=== PATIENT | male | born 1955 | race Caucasian/White ===

== ENCOUNTER → 2017-05-06 | Outpatient (CLI) | payer BC, SELFPAY | PROVIDERS: Visit Provider Surgery | DX: D17.1 Benign lipomatous neoplasm of skin and subcutaneous tissue of trunk (principal); Z01.818 Encounter for other preprocedural examination | CPT/HCPCS: 36415; 80048; 85025; 93005 ==

== ENCOUNTER 2017-06-05 08:41 | Day surgery (SDC) | payer BC, SELFPAY ==
[2017-06-02 14:41] VITALS: BMI 32.8
[2017-06-05] VITALS (11 sets, daily range): BP systolic 130–180; BP diastolic 72–95; PULSE 53–62; RESP 16–18; TEMP 36.1–37; O2SAT 95–98
--- NOTE | 2017-06-05 09:37 | HMH.ANESCL ---
[facility] Anesthesia Checklist - Patient Identification Patient Identification: Arm Band - Structural Data Admitted From: Home Planned Operative Procedure/s: excision right lower back mass Consent for Planned Operative Procedure(s) Verified: Yes Verified Documents: Surgical Consent, History and Physical - NPO Status Verified Time NPO: 00:00 - Additional verifications Anesthesia Reactions: No - Airway Assessment C-Spine Mobility Assessed: Yes (mp2) TMJ Mobility Assessed: Yes Dentition: Good Dentition - Neurological Assessment Level of Consciousness: Awake, Alert - Anesthesia Plan Anesthesia Risk discussed: Yes Anesthesia Plan: Verified ASA Class: III Anesthesia Type: General [facility] Anesthesia HX I have reviewed the patient's past medical history: Yes Medical History: Reports:: Diabetes Mellitus Type 2 (ON MEDS), Gastroesophageal Reflux Disease(GERD), Hyperlipidemia, Hypertension Denies:: Cancer, Diabetes Mellitus Type 1, MRSA Comment: flip-no cpap, anxiety Other Surgeries: Yes: Colonoscopy, Hernia Repair Amputation: No Fractures: No Comment: hemorrhoidectomy *Family Hx:: Cancer, Coronary Artery Disease, Heart Attack, Hypertension, Kidney Disease
[2017-06-05 09:40] LABS: POC Glucose,Bedside 155 mg/dL
--- NOTE | 2017-06-05 10:47 | HMH.OPNOTE ---
Date of procedure: 06/05/17 Pre-op Diagnosis:: Right lower back lipoma versus sebaceous cyst Post-op diagnosis:: other (Right lower back sebaceous cyst) Procedure performed:: Excision of 5cm sebaceous cyst from right lower back Surgeon:: Walt Collins MD MARKETING STRATEGY LEAD:: Paul Heredia Anesthesia: LMA Estimated blood loss (mL): 10 Operative findings:: Large complex sebaceous cyst along the right lower back Operative note:: After informed consent was obtained, the patient was taken to the operating room and placed in the supine position. General anesthesia with laryngeal mask airway was achieved the patient was transferred to a left lateral decubitus position. The right lower back was prepped and draped in a sterile fashion. After infiltration of local anesthetic an elliptical incision was made around the central portion of the lesion and the underlying tissue was carefully excised with combination of sharp dissection with scalpel and electrocautery. A large complex cystic lesion was excised and passed off for pathologic evaluation. The wound was thoroughly irrigated and skin was closed with interrupted 4-0 nylon. Dressings were applied. The patient's anesthetic agents were reversed and he was transferred to recovery after removal of his laryngeal mask airway. Condition: stable Disposition: PACU Specimens:: Large complex right lower back sebaceous cyst Complications:: No immediate
--- NOTE | 2017-06-05 10:50 | P.OP_ITS ---
Date of procedure: 06/05/17 Pre-op Diagnosis:: Right lower back lipoma versus sebaceous cyst Post-op diagnosis:: other (Right lower back sebaceous cyst) Procedure performed:: Excision of 5cm sebaceous cyst from right lower back Surgeon:: Walt Collins MD ENTREPRENEURIAL FINANCE PROFESSOR:: Paul Heredia Anesthesia: LMA Estimated blood loss (mL): 10 Operative findings:: Large complex sebaceous cyst along the right lower back Operative note:: After informed consent was obtained, the patient was taken to the operating room and placed in the supine position. General anesthesia with laryngeal mask airway was achieved the patient was transferred to a left lateral decubitus position. The right lower back was prepped and draped in a sterile fashion. After infiltration of local anesthetic an elliptical incision was made around the central portion of the lesion and the underlying tissue was carefully excised with combination of sharp dissection with scalpel and electrocautery. A large complex cystic lesion was excised and passed off for pathologic evaluation. The wound was thoroughly irrigated and skin was closed with interrupted 4-0 nylon. Dressings were applied. The patient's anesthetic agents were reversed and he was transferred to recovery after removal of his laryngeal mask airway. Condition: stable Disposition: PACU Specimens:: Large complex right lower back sebaceous cyst Complications:: No immediate
--- NOTE | 2017-06-05 10:57 | HMH.ANESI ---
[facility] Anesthesia Record Part I Intake, IV Amount: 700 Estimated blood loss (mL): 10 Urine output (mL): 0 Blood Pressure: 133/76 SaO2: 95 Pulse Rate: 59 Respiratory Rate: 16 Temperature: 97.4 F Patient is:: Drowsy, Stable Stable to PACU at:: 10:55
--- NOTE | 2017-06-05 10:59 | HMH.ANESII ---
[facility] Anesthesia Record Part II Discharge Time: 11:25 Destination: [facility] PACU nurse assessment reviewed?: Yes Patient Condition:: Good Anesthesia Complications:: None
--- NOTE | 2017-06-05 11:00 | P.PN_ITS ---
[facility] Anesthesia Record Part II Discharge Time: 11:25 Destination: [facility] PACU nurse assessment reviewed?: Yes Patient Condition:: Good Anesthesia Complications:: None
[2017-06-05 11:17] LABS: POC Glucose,Bedside 137 mg/dL
== END 2017-06-05 12:26 | disposition home or self-care (01) ==
LOC: OR 08:43
PROVIDERS: PCP Family Medicine; Visit Provider Surgery
PROC: (CPT 11406; principal; 2017-06-05 10:45)
DX: L72.3 Sebaceous cyst (principal); R20.8 Other disturbances of skin sensation; E11.8 Type 2 diabetes mellitus with unspecified complications
CPT/HCPCS: 11406; 82962; 96374; J2405

== ENCOUNTER → 2017-11-24 08:05 | Outpatient (CLI) | payer BC, SELFPAY ==
--- NOTE | 2017-11-25 14:41 | PC.NURSE ---
[facility] WAS POSITIVE. 'S OFFICE CONTACTED AND [facility] FAXED
== END ==
PROVIDERS: PCP Family Medicine; Visit Provider Family Medicine
DX: R07.89 Other chest pain (principal)
CPT/HCPCS: 93017

== ENCOUNTER → 2017-12-22 10:26 | Outpatient (CLI) | payer BC, SELFPAY ==
[2017-12-22 11:05] LABS: Anion Gap 12.9 mEq/L (5-15); Blood Urea Nitrogen 23 mg/dL (7-18); Calcium 9.2 mg/dL (8.5-10.1); Carbon Dioxide 31 mmol/L (21.0-32.0); Chloride 102 mmol/L (98-107); Creatinine,Serum 1.49 mg/dL (0.70-1.30); Estimated Glomerular Filt Rate 48 ml/min (>60); GFR (African American) 58 ML/MIN (>60); Glucose 182 mg/dL (74-106); Potassium 4.9 mmoL/L (3.5-5.1); Sodium 141 mmol/L (136-145)
== END ==
PROVIDERS: Visit Provider Internal Medicine
DX: I20.8 Other forms of angina pectoris (principal); I10 Essential (primary) hypertension
CPT/HCPCS: 36415; 80048

== ENCOUNTER → 2017-12-29 08:48 | Outpatient (CLI) | payer BC, SELFPAY ==
--- NOTE | 2017-12-29 08:50 | CA_ITS ---
PROCEDURE: 2-D M-mode and color Doppler study INDICATIONS FOR THE TEST: Chest painX COPDX Heart Murmur Tobacco SmokingEX PalpitationsX FatigueX Syncope Edema HypertensionXDiabetes MellitusX Rheumatic Fever SOBXDOEXObesityXHyperlipidemia Family History HDX Additional History ABN EKG PATIENT INFORMATION HEIGHT: 71 WEIGHT:247 GENDER: Male B/P:155/72 2-D/M-MODE INTERPRETATION: 2-D MEASUREMENTS OBSERVED VALUES IN CMS Right Ventricular Dimension (RVDd) 2.3 Interventricular Septum (Thickness)(IVsd) 1.4 Left Ventricular Internal Dimensions(LVIDd) 5.4 Left Ventricular Posterior Wall (Thickness)(LVPWd) 1.3 Aortic Root 2.9 Aortic Cusp Separation 2.0 Left Atrial Dimensions (LAD) 4.7 2D 1. Left atrium is mildly enlarged, left ventricle is normal size, mild concentric left ventricular hypertrophy, visually estimated ejection fraction 55% with no obvious regional wall motion abnormality. 2. The right atrium and right ventricle are normal size and contractility. 3. The aortic valve is minimally thickened and fibrosed. 4. The mitral and tricuspid valvular minimally thickened. 5. The pulmonic valve is poorly visualized. 6. No significant pericardial effusion noted. DOPPLER INTERROGATION: Doppler interrogation of the aortic, mitral and tricuspid valvular presence of mild mitral and tricuspid regurgitation, tricuspid regurgitant jet velocity is insufficient for calculation of the right ventricular systolic pressure, grade 1 diastolic dysfunction seen with tissue Doppler evidence of raised left atrial pressure. CONCLUSION: 1. Mildly enlarged left atrium, normal left ventricular size, mild concentric left ventricular hypertrophy, visually estimated ejection fraction of 55% with no obvious regional wall motion abnormality, grade 1 diastolic dysfunction seen with tissue Doppler evidence of raised left atrial pressure. 2. Mild mitral and tricuspid regurgitation 3. No significant pericardial effusion noted.
[2017-12-29 10:09] VITALS: PULSE 67
== END ==
PROVIDERS: PCP Family Medicine; Visit Provider Internal Medicine
DX: R06.09 Other forms of dyspnea (principal)
CPT/HCPCS: 93306; 94060; 94640; 94726; 94729

== ENCOUNTER → 2018-07-30 13:45 | Outpatient (CLI) | payer BC, SELFPAY ==
--- NOTE | 2018-07-30 13:50 | XR_ITS ---
XR shoulder LT min 2V HISTORY: ITS.REASON: CHRONIC LT SHOULDER PAIN ORDERING PHYSICIAN: Christian Noonan PATIENT AGE: 62 years Comparison: None FINDINGS: No fracture or dislocation. No lytic or blastic change. There is normal mineralization. The joint spaces are well-preserved. No significant degenerative/arthritic changes. No erosive changes evident. There is mild subacromial stenosis IMPRESSION: Mild subacromial stenosis otherwise negative left shoulder
== END ==
PROVIDERS: PCP Family Medicine; Visit Provider Family Medicine
DX: M25.512 Pain in left shoulder (principal); G89.29 Other chronic pain
CPT/HCPCS: 73030

== ENCOUNTER 2018-08-26 10:43 | Outpatient (RCR) | payer BC, SELFPAY | END 2018-08-26 10:55 | disposition home or self-care (01) | LOC: OT 10:43 | PROVIDERS: Visit Provider Orthopaedic Surgery | DX: G56.02 Carpal tunnel syndrome, left upper limb | CPT/HCPCS: 97763 ==

== ENCOUNTER → 2018-09-23 13:56 | Outpatient (CLI) | payer BC, SELFPAY ==
--- NOTE | 2018-09-23 13:59 | MR_ITS ---
MR shoulder LT wo con HISTORY:Left shoulder pain, previous shoulder dislocation. Limited range of motion ITS.REASON: evaluate for rotator cuff tear ORDERING PHYSICIAN: Neel Espino MD PATIENT AGE: 63 years Comparison: 07/30/2018 TECHNIQUE: Standard multiplanar multiecho sequences are performed without contrast. FINDINGS: Hypertrophic changes are present at the acromioclavicular joint and there are minimal hypertrophic changes along the distal aspect of the acromion inferiorly with mild subacromial stenosis. There are slight increased T2 signal involving the distal aspect of the supraspinatus tendon consistent with tendinopathy/tendinosis. No evidence of a supraspinatus tendon tear. There is increased T2 signal involving the distal aspect of the infraspinatus tendon at its insertion on the greater tuberosity suggesting a small split tear of the distal aspect of the infraspinatus. A complete tear with tendon and muscle retraction is not apparent. The subscapularis and teres minor tendons are intact. The bicipital tendon is in place. No obvious labral tear. Small amount of fluid is present in the subcoracoid region consistent with bursitis. No acute fracture or dislocation is evident. IMPRESSION: 1. Suspect a partial split tear of the distal aspect of the infraspinatus tendon. 2. 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 3. Subcoracoid bursitis
== END ==
PROVIDERS: PCP Family Medicine; Visit Provider Orthopaedic Surgery
DX: M25.512 Pain in left shoulder (principal); G89.29 Other chronic pain
CPT/HCPCS: 73221

== ENCOUNTER 2018-10-26 08:30 | Outpatient (RCR) | payer BC, SELFPAY ==
--- NOTE | 2018-10-19 10:36 | HMH.OTOPEV ---
OT Inpatient Evaluation Rehab OT Outpatient Eval Start: 10/19/18 10:18 Freq: Status: Active Protocol: Document 10/19/18 10:18 TFRY (Rec: 10/19/18 10:36 TFRY [id number]) Electronically Signed By Michelle Mcmillan OT 10/19/18 10:18 Outpatient Therapy Subjective History Subjective History This is a 63 year old right handed male referred to occupational therapy for left shoulder SA, rotator cuff tendinopathy and partial thickness tear. Patient reports he initially injuried his shoulder in February of 2018 when he dislocated and put in back in place himself. He reports that it has just gotten worse over past 2 months and that was when he went to see the orthopedic doctor. He received a cortisone injection on 10/08. Chief Complaint Pain Symptom Type Sharp,Dull Symptoms Relieved By Rest/Positioning,OTC Meds Symptoms Aggravated By Physical Activity Prior Functional Limitations None Current Functional Limitations Reaching,Driving,Sleeping Symptom Description Activity Dependent Level of pain today (0-10) 0 Pain scale - at its best (0-10) 0 Pain scale - at its worst (0-10) 3 Shoulder/Elbow Eval Shoulder Objective Measurements Palpation Tenderness tenderness over the bicipital tendon left shoulder exam standard Shoulder Palpation Findings Tenderness Shoulder ROM Left Shoulder ROM Limitations Pain Shoulder Abduction Active Range of 115 Motion (degrees) Shoulder Abduction Passive Range of 155 Motion (degrees) Shoulder Flexion Active Range of Motion 135 (degrees) Query Text: Shoulder Flexion Passive Range of Motion 160 (degrees) Shoulder External Rotation Active Range 65 of Motion (degrees) Shoulder External Rotation Passive Range 65 of Motion (degrees) Shoulder Internal Rotation Active Range 45 of Motion (degrees) Shoulder Internal Rotation Passive Range 65 of Motion (degrees) Shoulder Extension Active Range of 55 Motion (degrees) pain with active ROM shoulder exam left standard pain with passive ROM shoulder exam left standard decreased ROM shoulder exam standard left Shoulder MMT Shoulder Abduction Strength Grade 3- Fair-
== END 2018-10-26 08:35 | disposition home or self-care (01) ==
LOC: OT 08:30
PROVIDERS: Visit Provider Orthopaedic Surgery
DX: M25.512 Pain in left shoulder (principal)
CPT/HCPCS: 97014; 97110; 97140; 97165; G0283

== ENCOUNTER → 2019-06-17 14:56 | Outpatient (CLI) | payer BC, SELFPAY | PROVIDERS: PCP Family Medicine; Visit Provider Family Medicine | DX: R29.818 Other symptoms and signs involving the nervous system (principal); E29.1 Testicular hypofunction; G47.33 Obstructive sleep apnea (adult) (pediatric) | CPT/HCPCS: G0399 ==